=== PATIENT | male | born 1990 | race Caucasian/White ===

== ENCOUNTER 2022-06-28 20:49 | Emergency (ER) | payer OTHER ==
[~2022-06-28] VITALS: Ht 175.3 cm; Wt 61.2 kg
[2022-06-28 22:16] VITALS: BP 122/76
--- NOTE | 2022-06-28 22:16 | NUR ---
BIBS FOR MULTIPLE TEETH PAIN 9/10 (UPPER,LOWER) X2 DAYS, WORSE TODAY. LAST DENTAL EXAM >1YR AGO (RECOMMENDATION FOR IMPLANTS). PT AAOX4, IN NAD. TO ER 1 FOR EVAL. VITALS CHECKED.
[2022-06-28] MEDS ORDERED: IBUP-1955 PO (22:36)
[2022-06-28] MEDS ORDERED: HYDROCODONE/APAP 5/325MG TABLET ONE (22:41)
[2022-06-28] MEDS ORDERED: HYDROCODONE/APAP 5/325MG TABLET PO ONE (23:00)
== END 2022-06-28 23:02 | disposition home or self-care (01) ==
LOC: ER 20:51
DX: K02.9 Dental caries, unspecified (principal)